=== PATIENT | male | born 1945 | race Two or more races ===

== ENCOUNTER 2023-09-19 14:07 | Outpatient (CLI) | payer OTHER | END 2023-09-19 14:16 | disposition home or self-care (01) | LOC: TOM 14:07 | PROVIDERS: ATTEND Otolaryngology Plastic Surgery within the Head & Neck | DX: J32.8 Other chronic sinusitis (principal); R43.0 Anosmia ==

== ENCOUNTER 2023-09-29 07:44 | Outpatient (CLI) | payer OTHER | END 2023-09-29 07:52 | disposition home or self-care (01) | LOC: RX STUDY 07:44 | PROVIDERS: ATTEND Otolaryngology Plastic Surgery within the Head & Neck | DX: R13.19 Other dysphagia (principal); R09.89 Other specified symptoms and signs involving the circulatory and respiratory systems ==